=== PATIENT | male | born 1975 | race Caucasian/White ===

== ENCOUNTER 2024-03-22 20:38 | Emergency (ER) | payer SELFPAY ==
[2024-03-22 20:40] VITALS: BP 152/96; PULSE 105; RESP 20; TEMP 36.8; BMI 25.9
--- NOTE | 2024-03-22 20:54 | EDS_ITS ---
HPI HPI - Fall History of Present Illness Chief Complaint: Fall Informant: patient and EMS Narrative Narrative: Patient states he had a fall around 8 or 9 hours ago, presenting now by EMS for pain and injury from it to the right side of his back. He states he has multiple myeloma is on treatment for it and recently was in a coma and released from a [facility], he has been feeling generally weak but not acutely so, getting around with his walker. Has been home for 3 days now, and feeling less weak than he was when he was discharged from the hospital, which was in [facility]. He lost his balance in his kitchen today while using his walker, which went up on one wheel and he fell against the counter against his right back, injuring ribs on the right side hurts more to move, he is not out of breath he denies any other injury or systemic symptoms or other recent illness. He had no prodromal symptoms with regards of the fall, and basically describes this as being mechanical like he turned too sharply. [facility] Medical History Multiple myeloma Allergy/AdvReac Type Severity Reaction Status Date / Time No Known Allergies Allergy Verified 03/22/24 20:40 Social History Smoking Status: Former smoker ROS ROS ED Constitutional Constitutional ED: Denies chills or fever(s) Eyes Eyes: Denies change in vision or diplopia ENT ENT ED: Denies rhinorrhea or sore throat Cardiovascular Cardiovascular: Denies chest pain or palpitations Respiratory/Chest Respiratory/Chest: Denies cough or dyspnea Gastrointestinal Gastrointestinal: Denies abdominal pain, diarrhea, nausea or vomiting Genitourinary Genitourinary ED: Denies dysuria or hematuria Musculoskeletal Musculoskeletal: Reports back pain; Denies neck pain Integumentary Denies abscess or rash Neurologic Neurologic: Denies headache(s), paresthesias or weakness Psychiatric Psychiatric: Denies anxiety or suicidal thoughts EXAM Physical Exam Const Vital Signs: 03/22/24 20:40 03/22/24 20:43 Temperature 98.3 F Temperature Source Oral Pulse Rate 105 H Respiratory Rate 20 H Respiratory Effort Normal Non-Labored Respiratory Depth Normal Respiratory Pattern Normal Blood Pressure 152/96 H Blood Pressure Mean 114 Oxygen Delivery Method Room Air Room Air Positive well nourished and well developed General Appearance ED: well developed and NAD HEENT Reports moist mucous membranes normocephalic and atraumatic Eyes PERRL and EOMs intact bilaterally Neck full ROM and supple Neck Narrative: Suspected central line site scab without signs of hematoma or infection/tenderness left lateral neck over the sternocleidomastoid anterolaterally/distally Chest Wall inspection of chest normal and palpation of chest normal Chest Narrative: With lateral compression of the rib cage patient has no pain Resp normal respiratory effort and clear to auscultation bilaterally Cardio regular rate, regular rhythm and no murmurs GI non-tender and non-distended GI Narrative: Epigastric PEG benign site Auscultation: normoactive bowel sounds Palpation: soft Back/Spine no CVA tenderness Back/Spine Narrative: No objective signs of trauma. No midline spine tenderness throughout. Right paraspinal tenderness from the inferior aspect of the right scapula all the way down throughout the ribs, no other bony tenderness including the pelvic brim. No palpable crepitance or step-off. No scapular bony tenderness. General Back: other Limited range of motion due to pain but able to roll over on his own Extremity normal to inspection Extremity Narrative: Full range of motion throughout all 4 extremities without any joint or extremity pain or limitation General Extremety ED: Negative for edema, pulses abnormal or tenderness General Extremity: Negative for edema or pulses abnormal Neuro oriented x3, CN's II-XII intact bilaterally and no sensory deficits noted Sensorium / Orientation: awake and alert Motor Exam: strength 5/5 throughout Psych mental status grossly normal and thought process normal Skin no rashes or lesions noted and no wounds MDM MDM MDM Narrative Medical decision making narrative: I obtained 5 view x-ray series of the right ribs including a PA chest. There is no rib fracture on my interpretation, no pneumothorax, however he has bilateral patchy infiltrates. I sat with him and obtain more history. He has had no cough today, no dyspnea. He states he does not remember anything about his recent hospitalization, just that he got some chemotherapy in his arm and the next thing he remembers it is several weeks later and he is waking up in the hospital and people are telling him that he almost . He agrees that he was discharged on quite a few medications, he has no idea what they are or if he is on an antibiotic or not. Eventually while here in the ER someone was able to produce some discharge papers with a list of medications and follow-up appointments. He is on no antibiotics. He apparently was in the ICU with s eptic shock, NSTEMI, acute hypoxic respiratory failure, IgG myeloma hyponatremia, aspiration pneumonitis, and a nontraumatic retroperitoneal hematoma. He states overall right now he is feeling pretty good. When asked why he is here in this area which is a long way from [facility], he states he has family that lives here but his and kids are in [place] and I did not want to in [place], so I came here and was hoping to just see doctors here instead of there. He has follow-up recommended for primary care, hospitalist, gen surgery, CHF clinic, and pulmonary in the [facility]. I advised him that if he wants good care, he needs to follow- up with those doctors, without trying to transfer his care here since he will be a new patient everyone and I will take him a long time to get appointments. He agrees that is reasonable. With regards to his chest x-ray showing patchy infiltrates bilaterally, it is unclear if this is infectious, if they are acute, if they are chronic, if they are resolving, etc. I obtained some labs at this time in order to help put this in the context. Clinically he looks great and his vital signs are excellent, with a mild resting tachycardia. I reviewed the labs. The only 1 that is immediately concerning is his hemoglobin of 6.8. I have no old measurements recently for reference. He has some mild renal insufficiency, he was diagnosed with MAIRO on his discharge papers, and with regards to his chest x-ray I suspect since he has no acute symptoms that these findings are either chronic, resolving, or both. I do not think he needs acute antibiotic therapy. After discussion with the patient, he is amenable to getting a unit of blood transfusion and being discharged home. Again as above encouraged to make his multiple follow-up appointments with his established healthcare system. History & Record Review Additional record(s) reviewed:: Other ([facility] outside [facility] records, pt is not listed.) Lab Data Attestation: I reviewed the patient's lab results. Labs: Laboratory Results - last 24 hr 03/22/24 03/23/24 23:51 00:03 WBC 7.7 RBC 2.32 L Hgb 6.8 L Hct 22.1 L MCV 95.3 H MCH 29.3 MCHC 30.8 L RDW Std Deviation 60.6 H RDW Coeff of Michael 17.8 H Plt Count 502 H MPV 9.8 Immature Gran % (Auto) 0.300 Neut % (Auto) 76.7 H Lymph % (Auto) 17.3 L Dickson % (Auto) 5.1 Eos % (Auto) 0.3 Baso % (Auto) 0.3 Absolute Neuts (auto) 5.9 Absolute Lymphs (auto) 1.32 Nucleated RBC % 0 Sodium 137 Potassium 3.9 Chloride 111 H Carbon Dioxide 24.0 Anion Gap 2 L BUN 35 H Creatinine 1.47 H Estim Creat Clear Calc 72.65 Est GFR (MDRD) Af Amer 65 Est GFR (MDRD) Non-Af 54 L BUN/Creatinine Ratio 23.8 H Glucose 94 Lactic Acid 0.6 Calcium 7.6 L Radiography Diagnostic Testing: Clinical Impression(s) from Imaging Studies Ribs w/Chest X-Ray 03/22/24 21:05 IMPRESSION: No evidence of acute rib fracture. Bilateral patchy infiltrates. Electronically Signed: Benji Rodriguez DO at 21:30 EDT Reading Location ID and State: [address] [place] [address] Tel [phone], Service support , Discharge Plan Triage Chief Complaint: Fall ED Provider: Cordell Preciado Dx/Rx/DC Orders Clinical Impression: Back contusion, Anemia, Bilateral pulmonary infiltrates on chest x-ray Instructions: ED Anemia, Type Not Specified (Adult), ED Back Contusion Primary Care Provider: Care Physician,No Primary Referrals: Doctor,Your [Non-Staff] - (as recommended on your [place] discharge papers) Print Language: [place] Disposition Disposition: Home, Self Care
[2024-03-22] MEDS: oxyCODONE 5 MG Tablet PO (20:57)
--- NOTE | 2024-03-22 21:05 | RAD_ITS ---
INDICATION: injury/fall, posterior pain EXAMINATION/TECHNIQUE: X-RAY - XR Ribs Unilateral W/ PA Chest Min 3 Views COMPARISON: FINDINGS: SOFT TISSUES: No soft tissue swelling or gas. BONES: Old right and fifth rib fractures. No sclerotic or destructive changes observed. Degenerative vertebral changes. VISUALIZED LUNGS: Bilateral patchy infiltrates. No pneumothorax. RAD/Ribs Uni Min 3V w/PA Chest IMPRESSION: No evidence of acute rib fracture. Bilateral patchy infiltrates. Electronically Signed: Benji Rodriguez DO at 21:30 EDT ,
[2024-03-23] VITALS: BP 148/85; O2SAT 91
[2024-03-23] MEDS: Morphine 4 MG/ML Syringe IV (00:13)
[2024-03-23 00:25] LABS: Absolute Lymphocyte Count 1.32 X10^3/uL (0.83-4.51); Absolute Neutrophil Count 5.9 X10^3/uL (2.0-7.7); Basophil# 0.02 X10^3/uL; Basophil% 0.3 % (0-1); Eosinophil# 0.02 X10^3/uL; Eosinophils% 0.3 % (0-5); Hematocrit 22.1 % (40-54); Hemoglobin 6.8 g/dL (13.0-16.5); Lymphocyte # 1.32 X10^3/ul (0.83-4.51); Lymphocyte % 17.3 % (19-41); Mean Corp Hgb Conc 30.8 g/dL (32-36); Mean Corpuscular Hgb 29.3 pg (27.0-32.0); Mean Corpuscular Volume 95.3 fL (80-94); Mean Platelet Vol. 9.8 fl (6.2-12.0); Monocyte# 0.39 X10^3/uL; Monocyte% 5.1 % (0-10); NRBC Flagged by Analyzer 0 % (0-5); Neutrophil # 5.88 X10^3/uL (2.7-7.7); Neutrophil % 76.7 % (47-70); Platelet Count 502 K/mm3 (150-450); RBC Distribution Width CV 17.8 % (11.6-14.6); RBC Distribution Width SD 60.6 fl (35.1-43.9); Red Blood Count 2.32 M/mm3 (4.6-6.2); White Blood Count 7.7 K/mm3 (4.4-11.0)
[2024-03-23 00:28] LABS: Anion Gap 2 (5-15); BUN 35 mg/dL (7-18); BUN/Creat Ratio 23.8 RATIO (10-20); Calcium,Total 7.6 mg/dL (8.5-10.1); Chloride 111 mmol/L (98-107); Creatinine, Serum 1.47 mg/dL (0.70-1.30); EST Glomerular Filtration Rate 54 mL/min (>60); Est Glom Filt Rate - Afr Amer 65 mL/min (>60); Estimated Creatinine Clearance 72.65 ml/min; Glucose 94 mg/dL (74-106); Lactic Acid 0.6 mmol/L (0.4-1.9); Potassium 3.9 mmol/L (3.5-5.1); Sodium Level 137 mmol/L (136-145)
[2024-03-23 00:50] VITALS: BP 167/101; PULSE 95; RESP 18; O2SAT 92
[2024-03-23 00:55] VITALS: O2SAT 87
[2024-03-23 01:00] VITALS: O2SAT 94
[2024-03-23 02:20] VITALS: BP 175/118; PULSE 101; RESP 18; TEMP 36.9; O2SAT 95
--- NOTE | 2024-03-23 02:38 | ED.RN ---
This RN received an update from the blood bank informing me that the type and screen would take longer d/t the patient's previous blood transfusions. This RN updated the patient on the reason for the wait. The pt. stated well I've been here 6 hours and it will be too long before I get out of here. This RN educated the patient on the necessity of the blood and our recommendation for the patient's care. The pt. stated well that's too damn long to wait, I'd rather go home. Pt. decided to be refuse the blood and leave. notified.
== END 2024-03-23 02:44 | disposition home or self-care (01) ==
PROVIDERS: Emergency Provider Emergency Medicine; Visit Provider Emergency Medicine
DX: S20.221A Contusion of right back wall of thorax, initial encounter (principal); C90.00 Multiple myeloma not having achieved remission; D64.9 Anemia, unspecified; R91.8 Other nonspecific abnormal finding of lung field; W01.198A Fall on same level from slipping, tripping and stumbling with subsequent striking against other object, initial encounter; Y92.000 Kitchen of unspecified non-institutional (private) residence as the place of occurrence of the external cause; Z87.891 Personal history of nicotine dependence
CPT/HCPCS: 71101; 80048; 83605; 85025; 86850; 86870; 86900; 86901; 96374; 99282; J7040; A4216

== ENCOUNTER 2024-03-26 09:26 | Inpatient (IN) | payer SELFPAY ==
[2024-03-26] VITALS (31 sets, daily range): BP systolic 115–178; BP diastolic 72–126; PULSE 102–145; RESP 12–40; TEMP 36.2–37.7; O2SAT 88–99; BMI 23.8; BMI 23.6
--- NOTE | 2024-03-26 09:46 | EDS_ITS ---
HPI History of Present Illness Chief Complaint: Shortness of Breath Informant: patient Narrative Narrative: Patient presents for shortness of breath over the last 1 or 2 days. He was seen here 3 to 4 days ago, we ordered a blood transfusion on him, after waiting for a while he refused and decided to leave. He was not really short of breath than he had no cough. He has multiple myeloma recently had an extended stay in the ICU at a [facility], see the history from my last note when I saw him a couple days ago. Now, he states he is really dyspnea especially with any exertion, and he has orthopnea. No chest discomfort even with exertion. Legs are swollen as they were before, they are sore because they are so swollen that is not really any different. Denies any other new symptoms. [facility] Medical History Multiple myeloma Home Medications ?Medication ?Instructions ?Recorded ?Last Taken ?Type allopurinol 300 mg tablet 300 mg PO DAILY Gout 03/26/24 Unknown History amlodipine 5 mg tablet 10 mg PO DAILY BP 03/26/24 Unknown History fentanyl 25 mcg/hr transdermal 1 patch transdermal Q72H pain 03/26/24 Unknown History patch gabapentin 300 mg capsule 300 mg PO TID Neuropathy 03/26/24 Unknown History metoprolol tartrate 25 mg tablet 25 mg PO BID HTN 03/26/24 Unknown History pantoprazole 40 mg tablet,delayed 40 mg PO DAILY GERD 03/26/24 Unknown History release ramelteon 8 mg tablet 8 mg PO QHS sleep 03/26/24 Unknown History rivaroxaban 10 mg tablet 10 mg PO DAILY Blood thinner 03/26/24 Unknown History scopolamine base 1 mg over 3 days 1 patch transdermal Q72H pain 03/26/24 Unknown History transdermal patch sertraline 100 mg tablet (Zoloft) 100 mg PO DAILY Depression 03/26/24 Unknown History Allergy/AdvReac Type Severity Reaction Status Date / Time No Known Allergies Allergy Verified 03/26/24 09:27 Social History Smoking Status: Former smoker ROS ROS ED Constitutional Constitutional ED: Denies chills or fever(s) Eyes Eyes: Denies change in vision or diplopia ENT ENT ED: Denies rhinorrhea or sore throat Cardiovascular Cardiovascular: Reports leg edema and orthopnea; Denies chest pain or palpitations Respiratory/Chest Respiratory/Chest: Reports dyspnea, dyspnea on exertion and orthopnea; Denies cough Gastrointestinal Gastrointestinal: Denies abdominal pain, diarrhea, nausea or vomiting Genitourinary Genitourinary ED: Denies dysuria or hematuria Musculoskeletal Musculoskeletal: Reports back pain and other Details: back pain from contusion sev days ago much better ; Denies neck pain Integumentary Denies abscess or rash Neurologic Neurologic: Denies headache(s), paresthesias or weakness Psychiatric Psychiatric: Denies anxiety or suicidal thoughts EXAM Physical Exam Const Vital Signs: 03/26/24 09:27 03/26/24 09:27 03/26/24 09:59 Temperature 98 F Temperature Source Temporal Pulse Rate 128 H 126 H 120 H Respiratory Rate 18 20 H 30 H Respiratory Effort Respiratory Pattern Blood Pressure 171/115 H 177/124 H Blood Pressure Mean 133 141 Pulse Ox 95 94 Oxygen Delivery Method Room Air Room Air Oxygen Flow Rate (L/min) 03/26/24 10:19 03/26/24 10:22 03/26/24 10:30 Temperature 98.3 F Temperature Source Oral Pulse Rate 119 H Respiratory Rate 24 H Respiratory Effort Short of Breath Respiratory Pattern Tachypnea Blood Pressure 161/108 H Blood Pressure Mean 125 Pulse Ox 88 Oxygen Delivery Method Room Air Room Air Oxygen Flow Rate (L/min) 03/26/24 11:00 03/26/24 12:00 03/26/24 12:12 Temperature 98.3 F 98.1 F Temperature Source Oral Oral Pulse Rate 119 H 125 H Respiratory Rate 24 H 26 H Respiratory Effort Respiratory Pattern Blood Pressure 169/114 H 178/120 H Blood Pressure Mean 132 139 Pulse Ox 94 96 Oxygen Delivery Method Nasal Cannula Nasal Cannula Nasal Cannula Oxygen Flow Rate (L/min) 2 2 2 Positive well nourished and well developed General Appearance ED: well developed and NAD HEENT Reports moist mucous membranes normocephalic and atraumatic Eyes PERRL and EOMs intact bilaterally Neck full ROM and supple Resp Resp Narrative: Tachypneic, bibasilar Rales/rhonchi Cardio regular rate, regular rhythm and no murmurs GI non-tender and non-distended Auscultation: normoactive bowel sounds Palpation: soft Back/Spine no CVA tenderness General Back: other FROM Extremity normal to inspection General Extremety ED: Yes edema; Negative for pulses abnormal or tenderness General Extremity: edema bilateral lower extremity Details: mild; Negative for p ulses abnormal Neuro oriented x3, CN's II-XII intact bilaterally and no sensory deficits noted Sensorium / Orientation: awake and alert Motor Exam: strength 5/5 throughout Skin no rashes or lesions noted and no wounds MDM MDM MDM Narrative Medical decision making narrative: Labs obtained, and since then suspicious for acute congestive heart failure, give the patient a duo nebulizer and Lasix. He still is hypoxic, 88% on room air, needing oxygen, still tachycardic afterwards and hypertensive. He needs to be admitted to the hospital at this point. He refused the blood transfusion the other day, his hemoglobin is now 7.6 so I held off on emergently transfusing him. His EKG shows sinus tachycardia no acute injury pattern, his BNP is very high consistent with the above, his troponin is within normal limits. Has hypoalbuminemia, which likely is contributing to his peripheral edema in conjunction with acute congestive heart failure. Lab Data Attestation: I reviewed the patient's lab results. Labs: Laboratory Results - last 24 hr 03/26/24 09:50 WBC 10.6 RBC 2.55 L Hgb 7.6 L Hct 24.6 L MCV 96.5 H MCH 29.8 MCHC 30.9 L RDW Std Deviation 61.4 H RDW Coeff of Michael 17.9 H Plt Count 469 H MPV 9.7 Immature Gran % (Auto) 0.600 Neut % (Auto) 83.3 H Lymph % (Auto) 11.5 L [place] % (Auto) 4.3 Eos % (Auto) 0.2 Baso % (Auto) 0.1 Absolute Neuts (auto) 8.9 H Absolute Lymphs (auto) 1.22 Nucleated RBC % 0 Sodium 132 L Potassium 3.8 Chloride 107 Carbon Dioxide 21.0 Anion Gap 4 L BUN 22 H Creatinine 1.16 Estim Creat Clear Calc 92.07 Est GFR (MDRD) Af Amer 86 Est GFR (MDRD) Non-Af 71 BUN/Creatinine Ratio 19.0 Glucose 105 Calcium 8.3 L Iron 51 L TIBC 247 L Iron Saturation 20.6 Ferritin 774 H Total Bilirubin 0.40 AST 26 ALT 18 Alkaline Phosphatase 100 Troponin I High Sens 22 B-Natriuretic Peptide 2328.0 H Total Protein 12.8 H Albumin 2.0 L Globulin 10.8 H Albumin/Globulin Ratio 0.2 L Folate 14.10 TSH 11.400 H Radiography Diagnostic Testing: Clinical Impression(s) from Imaging Studies Chest X-Ray 03/26/24 10:40 IMPRESSION: Cardiomegaly, hyperinflation and increase in bilateral diffuse interstitial prominence with small effusions. Findings compatible with worsening interstitial edema/congestive failure. Follow-up chest imaging to resolution recommended. Electronically Signed: Tadeo Medrano MD at 11:00 EDT , Rhythm Strip Rhythm Strip: Sinus Tach Rate: 120 Ectopy: None EKG Initial EKG: Attestation: I personally reviewed and interpreted this EKG as follows: Interpretation: No Acute Injury Pattern and Sinus Tachycardia Management Discussion w/another healthcare provider: Hospitalist Discharge Plan Dx/Rx/DC Orders Clinical Impression: Acute CHF, Hypoxemia, Edema due to hypoalbuminemia, Anemia Disposition Disposition: [facility]
[2024-03-26] MEDS: Ipratropium/Albuterol Sulfate 3 ML AMPUL.NEB INHALATION (09:57)
[2024-03-26] MEDS: Furosemide 20 MG/2 ML VIAL IV (10:03)
[2024-03-26 10:05] LABS: Absolute Lymphocyte Count 1.22 X10^3/uL (0.83-4.51); Absolute Neutrophil Count 8.9 X10^3/uL (2.0-7.7); Basophil# 0.01 X10^3/uL; Basophil% 0.1 % (0-1); Eosinophil# 0.02 X10^3/uL; Eosinophils% 0.2 % (0-5); Hematocrit 24.6 % (40-54); Hemoglobin 7.6 g/dL (13.0-16.5); Lymphocyte # 1.22 X10^3/ul (0.83-4.51); Lymphocyte % 11.5 % (19-41); Mean Corp Hgb Conc 30.9 g/dL (32-36); Mean Corpuscular Hgb 29.8 pg (27.0-32.0); Mean Corpuscular Volume 96.5 fL (80-94); Mean Platelet Vol. 9.7 fl (6.2-12.0); Monocyte# 0.46 X10^3/uL; Monocyte% 4.3 % (0-10); NRBC Flagged by Analyzer 0 % (0-5); Neutrophil # 8.86 X10^3/uL (2.7-7.7); Neutrophil % 83.3 % (47-70); Platelet Count 469 K/mm3 (150-450); RBC Distribution Width CV 17.9 % (11.6-14.6); RBC Distribution Width SD 61.4 fl (35.1-43.9); Red Blood Count 2.55 M/mm3 (4.6-6.2); White Blood Count 10.6 K/mm3 (4.4-11.0)
[2024-03-26 10:20] LABS: Troponin-I HS 22 pg/mL (3.0-78.0)
--- NOTE | 2024-03-26 10:40 | RAD_ITS ---
STUDY: X-RAY CHEST REASON FOR EXAM: Male, 48 years old. Shortness of breath. TECHNIQUE: Frontal and lateral views of the chest on 3 images. COMPARISON: March 22, 2024 FINDINGS: Hyperinflation with increased diffuse interstitial prominence compared to the prior study. Bilateral small effusions. Marked cardiomegaly. Normal mediastinum and brian. Prominent central pulmonary arteries. Aortic tortuosity. Thoracic osteopenia with spondylosis and multiple vertebral plasty changes. Normal visualized ribs, clavicles, and shoulders. No abnormality of the visualized soft tissue structures of the upper abdomen. RAD/Chest PA and Lateral IMPRESSION: Cardiomegaly, hyperinflation and increase in bilateral diffuse interstitial prominence with small effusions. Findings compatible with worsening interstitial edema/congestive failure. Follow-up chest imaging to resolution recommended. Electronically Signed: Tadeo Medrano MD at 11:00 EDT ,
[2024-03-26 12:31] LABS: ALB/GLOB Ratio 0.2 RATIO (0.9-2.4); AST(SGOT) 26 U/L (15-37); Alanine Aminotransfer ALT/SGPT 18 U/L (16-61); Alkaline Phosphatase 100 U/L (45-117); Anion Gap 4 (5-15); BUN 22 mg/dL (7-18); Calcium,Total 8.3 mg/dL (8.5-10.1); Chloride 107 mmol/L (98-107); Creatinine, Serum 1.16 mg/dL (0.70-1.30); EST Glomerular Filtration Rate 71 mL/min (>60); Est Glom Filt Rate - Afr Amer 86 mL/min (>60); Estimated Creatinine Clearance 92.07 ml/min; Globulin 10.8 g/dL (2.2-4.2); Glucose 105 mg/dL (74-106); Potassium 3.8 mmol/L (3.5-5.1); Protein, Total 12.8 g/dL (6.4-8.2); Sodium Level 132 mmol/L (136-145)
--- NOTE | 2024-03-26 12:45 | HP.PCM.HOS_ITS ---
HPI - General General Date of Admission: 03/26/24 Date of Service: 03/26/24 Chief Complaint: Worsening shortness of breath HPI Narrative MAGUI BINGHAM, is a 48 M who presented to [facility] ED on 03/26/2024 with worsening shortness of breath. Saw patient at bedside in the ED. Patient had mild increased work of breathing noted on 2 L nasal cannula with oxygen saturations in the low to mid 90s. Patient has complicated recent past medical history; please see Dr. Preciado's note from ED visit on 03/22 for further details. In short, patient was living in [place], [place] until about 1 week ago. He was diagnosed with multiple myeloma back in September of this year. He apparently had started chemotherapy treatments but then had a very complicated prolonged hospitalization recently. He was in the ICU with septic shock, NSTEMI, acute hypoxic respiratory failure, hyponatremia, aspiration pneumonitis and nontraumatic retroperitoneal hematoma. He was intubated for 2 weeks but was able to be extubated and did not require tracheostomy placement. He did have a PEG tube placed for feeding and PEG tube remains in place now, though he is eating by mouth fine and PEG tube is not being used. He had follow-up set up with several physicians in [place] but his mother lives here in [place] and he decided to move up here at least for now and establish care here. He came to the ED on 03/22 with shortness of breath and was found to have mild patchy bilateral infiltrates and anemia with hemoglobin 6.8. He was going to receive a blood transfusion but apparently became tired of waiting for the blood in the left AMA from the ED. In the ED today his presentation was consistent with a heart failure exacerbation. Chest x-ray showed cardiomegaly, hyperinflation and increase in bilateral diffuse interstitial fragments with small pleural effusions. BNP 2328. Blood pressure was high. Was given a dose of IV Lasix and a DuoNeb treatment. Remained hypoxic, hypertensive and with sinus tachycardia after these treatments. Hospitalist was then contacted for admission. About 30 minutes to an hour after I initially saw him, I was contacted with nursing staff who stated the patient was not doing well. Returned to see patient at bedside. Patient had been placed on BiPAP and had significantly increased work of breathing compared to previous. Had sinus tachycardia to the 120s 130s. Suspected that patient had some degree of hypertensive urgency possibly causing flash pulmonary edema. Give another dose of IV Lasix 40 and started in the Cardene drip, and patient was admitted to the ICU for further management. [facility] Medical History (Updated 03/27/24 @ 08:[address] Will Enrique DO) Substance abuse Anxiety Depression Former smoker Seizures Multiple myeloma Home Medications ?Medication ?Instructions ?Recorded ?Last Taken ?Type allopurinol 300 mg tablet 300 mg PO DAILY Gout 03/26/24 Unknown History amlodipine 5 mg tablet 10 mg PO DAILY BP 03/26/24 Unknown History fentanyl 25 mcg/hr transdermal 1 patch transdermal Q72H pain 03/26/24 Unknown History patch gabapentin 300 mg capsule 300 mg PO TID Neuropathy 03/26/24 Unknown History metoprolol tartrate 25 mg tablet 25 mg PO BID HTN 03/26/24 Unknown History pantoprazole 40 mg tablet,delayed 40 mg PO DAILY GERD 03/26/24 Unknown History release ramelteon 8 mg tablet 8 mg PO QHS sleep 03/26/24 Unknown History rivaroxaban 10 mg tablet 10 mg PO DAILY Blood thinner 03/26/24 Unknown History scopolamine base 1 mg over 3 days 1 patch transdermal Q72H pain 03/26/24 Unknown History transdermal patch sertraline 100 mg tablet (Zoloft) 100 mg PO DAILY Depression 03/26/24 Unknown History Allergy/AdvReac Type Severity Reaction Status Date / Time No Known Allergies Allergy Verified 03/26/24 09:27 Social History Smoking Status: Former smoker ROS Constitutional Constitutional: Reports fatigue and weakness; Denies chills or fever(s) Eyes Eyes: Denies change in vision Cardiovascular Cardiovascular: Reports dyspnea on exertion and edema; Denies chest pain Respiratory/Chest Respiratory/Chest: Reports shortness of breath at rest; Denies cough or wheezing Gastrointestinal Gastrointestinal: Denies abdominal pain Genitourinary Genitourinary: Denies dysuria Musculoskeletal Musculoskeletal: Denies arthralgias or myalgias Neurologic Neurologic: Denies dizziness, focal weakness or headache(s) Vital Signs Vital Signs Vital Signs: 03/26/24 09:27 03/26/24 09:27 03/26/24 09:59 Temperature 98 F Temperature Source Temporal Pulse Rate 128 H 126 H 120 H Respiratory Rate 18 20 H 30 H Respiratory Effort Respiratory Pattern Blood Pressure 171/115 H 177/124 H Blood Pressure Mean 133 141 Pulse Ox 95 94 Oxygen Delivery Method Room Air Room Air Oxygen Flow Rate (L/min) 03/26/24 10:19 03/26/24 10:22 03/26/24 10:30 Temperature 98.3 F Temperature Source Oral Pulse Rate 119 H Respiratory Rate 24 H Respiratory Effort Short of Breath Respiratory Pattern Tachypnea Blood Pressure 161/108 H Blood Pressure Mean 125 Pulse Ox 88 Oxygen Delivery Method Room Air Room Air Oxygen Flow Rate (L/min) 03/26/24 11:00 03/26/24 12:00 03/26/24 12:12 Temperature 98.3 F 98.1 F Temperature Source Oral Oral Pulse Rate 119 H 125 H Respiratory Rate 24 H 26 H Respiratory Effort Respiratory Pattern Blood Pressure 169/114 H 178/120 H Blood Pressure Mean 132 139 Pulse Ox 94 96 Oxygen Delivery Method Nasal Cannula Nasal Cannula Nasal Cannula Oxygen Flow Rate (L/min) 2 2 2 Weight Weight: 86.4 kg Body Mass Index (BMI) 23.8 Physical Exam Const alert, oriented x3, no apparent distress and average body habitus Constitutional Narrative: Middle-age male, mildly fatigued appearing, mild increased work of breathing noted on 2 L nasal cannula, otherwise sitting up fairly comfortably in bed, conversing normally, in no acute distress. General Appearance: cooperative HEENT normocephalic, head/scalp atraumatic, hearing grossly normal bilaterally, nasal mucous membranes and turbinates normal and moist oral mucous membranes Eyes PERRL, EOMs intact bilaterally and conjunctivae normal Neck full ROM Chest inspection of chest normal Resp Resp Narrative: Mild increased work of breathing noted on 2 there is nasal cannula with oxygen saturations in the low 90s. Moderately decreased breath sounds bilaterally throughout with crackles noted. No wheezing noted. Cardio no murmurs and peripheral pulses 2+ throughout Cardio Narrative: Tachycardic, regular rhythm. GI normal to inspection, nondistended, normoactive bowel sounds, soft to palpation, non-tender and non-distended Back/Spine normal ROM Extremity Extremity Narrative: +2-3 lower extremity pitting edema. Skin no rashes or lesions noted Neuro moves all extremities and no focal motor deficits Speech: speech normal Psych mental status grossly normal Results Lab / Micro Data 03/27/24 04:45 03/27/24 04:45 Labs: Laboratory Results - last 24 hr 03/26/24 09:50: WBC 10.6, RBC 2.55 L, Hgb 7.6 L, Hct 24.6 L, MCV 96.5 H, MCH 29.8, MCHC 30.9 L, RDW Std Deviation 61.4 H, RDW Coeff of Michael 17.9 H, Plt Count 469 H, MPV 9.7, Immature Gran % (Auto) 0.600, Neut % (Auto) 83.3 H, Lymph % (Auto) 11.5 L, Ballard % (Auto) 4.3, Eos % (Auto) 0.2, Baso % (Auto) 0.1, Absolute Neuts (auto) 8.9 H, Absolute Lymphs (auto) 1.22, Nucleated RBC % 0, Sodium 132 L , Potassium 3.8, Chloride 107, Carbon Dioxide 21.0, Anion Gap 4 L, BUN 22 H, Creatinine 1.16, Estim Creat Clear Calc 92.07, Est GFR (MDRD) Af Amer 86, Est GFR (MDRD) Non-Af 71, BUN/Creatinine Ratio 19.0, Glucose 105, Calcium 8.3 L, Total Bilirubin 0.40, AST 26, ALT 18, Alkaline Phosphatase 100, Troponin I High Sens 22, B-Natriuretic Peptide 2328.0 H, Total Protein 12.8 H, Albumin 2.0 L, G lobulin 10.8 H, Albumin/Globulin Ratio 0.2 L Rhythm Strip Rhythm Strip: Sinus Tach Rate: 120 Ectopy: None Imaging Radiology Impression Chest X-Ray 03/26/24 10:40 IMPRESSION: Cardiomegaly, hyperinflation and increase in bilateral diffuse interstitial prominence with small effusions. Findings compatible with worsening interstitial edema/congestive failure. Follow-up chest imaging to resolution recommended. Electronically Signed: Tadeo Medrano MD at 11:00 EDT Reading Location ID and State: [facility] / [place] , Service support , Assessment & Plan Assessment/Plan (1) Acute CHF: (2) Edema due to hypoalbuminemia: (3) Acute hypoxic respiratory failure: (4) Anemia: (5) HTN (hypertension): (6) Multiple myeloma: PLAN: Plan Patient is a 48-year-old male who presented [facility] ED on 03/26/2024 with worsening shortness of breath. 1. CHF exacerbation with acute hypoxic respiratory failure ? Admit under inpatient status to ICU. Presented with worsening shortness of breath. Chest x-ray with bilateral infiltrates and small pleural effusions. BNP 2300. Suspect new heart failure may be related to his multiple myeloma. Will treat with IV Lasix 40 mg every 8 hours for now. Urinary catheter placed for strict monitoring of I's and O's. Monitor daily BMP. Requiring BiPAP on admission, wean supplemental oxygen as able. Treating hypertension as noted below. Echo ordered. 2. Hypertensive urgency ? Hypertensive to 170s over 120s in the ED. Has history of hypertension, on home amlodipine and Lopressor but patient reports only intermittent compliance. Concern for hypertensive urgency with some degree of flash pulmonary edema in the ED. Continue Cardizem drip started in the ED for now. 3. Normocytic anemia ? Hemoglobin 7.6 on admit. Notably was 6.8 at recent ED visit on 03/22. Notably had prolonged hospitalization complicated by retroperitoneal hematoma recently and patient appears to be close to his new baseline hemoglobin. Low hemoglobin presumed in part due to multiple myeloma as well. Monitor CBC daily and transfuse for hemoglobin less than 7. Notably would need irradiated blood products with a transfusion. Iron studies, B12 and folate ordered. 4. Mild hyponatremia ? Sodium 132 on admit. Suspect due to hypervolemia. Treating CHF exacerbation as above. Monitor daily BMP. 5. Multiple myeloma with recent prolonged hospitalization ? Reportedly diagnosed in September 2023. Previously lived in [place] and had apparently began chemotherapy there prior to a prolonged hospitalization within the last month or so. That hospitalization was complicated by septic shock, NSTEMI, respiratory failure, hyponatremia, aspiration pneumonitis and nontraumatic retroperitoneal hematoma. Was intubated for about 2 weeks, able to be extubated without need for tracheostomy. Does have PEG tube in place, not currently in use. Mother lives in [place] and patient apparently moved up here last week and reports wanting to establish care here. Labs on admit with total protein 12.8, globulins 10.8, albumin 2.0. Treating acute CHF exacerbation as noted above. No inpatient needs for multiple myeloma but will need to determine outpatient treatment plan for him on discharge. 6. Hypothyroidism ? TSH 11.4, free T4 0.70 on admit. Unclear if patient has previous diagnosis of hypothyroidism but has no Synthroid noted on home med list. Will start p.o. Synthroid 50 mcg daily. 7. Acute debility ? PT/OT/case management consulted. Chronic medical conditions: ? GERD: Continue home PPI. ? Depression/insomnia: Continue home sertraline. Holding ramelteon, will start melatonin at night as needed. ? Chronic pain with neuropathy: Continue home gabapentin and fentanyl patch. ? History of gout: Continue home allopurinol. DVT prophylaxis: Lovenox CODE STATUS: Full code, verified Expected disposition: TBD Total clinical time spent by myself addressing the patient's medical issues, reviewing all the data, and collaborating with patient's care team: 75 minutes. Charges/Coding Visit Charges Inpatient E&M: 84534 Init Hosp L3
--- NOTE | 2024-03-26 12:53 | ECHOCS_ITS ---
Reason For Study: CHF Procedure This was a 2D Doppler, Color Flow transthoracic echocardiogram. Contrast injection was performed. Exam performed portable in ICU/CCU. Left Ventricle Normal LV size. Severe generalized LV hypokinesis. Estimated LVEF 30 to 35%. Diastolic function indeterminate. Right Ventricle Normal RV size. Mild to moderate global right ventricular systolic dysfunction. Atria The left atrium is mildly enlarged. Normal right atrium. Mitral Valve The mitral valve is structurally normal. No prolapse or stenosis seen. Tricuspid Valve Trivial tricuspid valve insufficiency. Right ventricular systolic pressure estimated to be 45 mmHg. Aortic Valve Trisinus/trileaflet aortic valve. Pulmonic Valve The pulmonic valve is not well visualized. Great Vessels The aortic root is not well visualized. Pericardium/Pleural No pericardial effusion. Medication Diluted definity 1.5ml given slow IV push to enhance endocardial definition. MMode/2D Measurements & Calculations LVIDd: 5.4 cm IVSd: 1.1 cm LVOT diam: 2.2 cm LVIDs: 4.6 cm LVPWd: 0.96 cm RVDd: 4.5 cm FS: 15.0 % LVOT area: 3.7 cm2 asc Aorta Diam: 3.1 cm LAV(MOD-bp): 46.2 ml LVAd ap4: 43.0 cm2 LAV(MOD-bp) Indexed: 21.5 ml/m2 LVLd ap4: 9.4 cm LAV(MOD-sp2): 49.7 ml EDV(MOD-sp4): 171.3 ml LAV(MOD-sp4): 40.5 ml EDV(sp4-el): 167.4 ml LVAs ap4: 33.4 cm2 LVLs ap4: 8.7 cm ESV(MOD-sp4): 109.8 ml ESV(sp4-el): 109.2 ml EF(MOD-sp4): 35.9 % EF(sp4-el): 34.8 % SV(MOD-sp4): 61.5 ml SV(sp4-el): 58.2 ml LA A4 area: 16.8 cm2 RA A4 area: 17.8 cm2 TAPSE: 2.2 cm Time Measurements MV dec time: 0.13 sec Doppler Measurements & Calculations MV E max alex: 94.7 cm/sec Lat Peak E' Alex: 10.3 cm/sec Med Peak E' Alex: 8.8 cm/sec MV A max alex: 83.1 cm/sec E/E' lat: 9.2 E/E' med: 10.8 MV E/A: 1.1 MV dec slope: 746.5 cm/sec2 Ao V2 max: 141.1 cm/sec LV V1 max: 116.1 cm/sec Ao max P.0 mmHg LV V1 max P.4 mmHg Ao V2 mean: 109.1 cm/sec Ao mean P.1 mmHg Ao V2 VTI: 22.4 cm DASH(V,D): 3.0 cm2 PA V2 max: 93.5 cm/sec TR max alex: 315.9 cm/sec PA max PG (full): 0.62 mmHg TR max P.9 mmHg ECHO/Echo Complete W/ Contrast Interpretation Summary Severe generalized LV hypokinesis. Estimated LVEF 30 to 35%. Diastolic function indeterminate. Mild to moderate global right ventricular systolic dysfunction. The left atrium is mildly enlarged. Right ventricular systolic pressure estimated to be 45 mmHg. Technically difficult study with suboptimal apical images. Ordering Physician: Will Enrique Performed By: Sandra Singleton RVT, RDCS and Student
[2024-03-26] MEDS: Acetaminophen 325 MG Tablet 650 MG PO ×2 (13:17→21:35)
[2024-03-26 13:29] LABS: Ferritin 774 ng/mL (26-388); Iron 51 ug/dL (65-175); Iron Binding Capacity,Total 247 ug/dL (250-450); PERCENT IRON SATURATION 20.6 % (15.0-55.0)
[2024-03-26] MEDS: Nicardipine HCl-0.9% Sod Chlor 20 MG/200 ML IV.SOLN 50 MG CONT INF (13:49)
[2024-03-26] MEDS: Lidocaine Jelly 2% 20 ML Syringe (URO-JET) 1 APPLIC TOPICAL (14:30)
[2024-03-26] MEDS: Gabapentin 100 MG Capsule PO (16:04)
[2024-03-26] MEDS: Furosemide 40 MG/4 ML Vial IV ×2 (16:04→20:40)
[2024-03-26] MEDS: Nicardipine HCl-0.9% Sod Chlor 20 MG/200 ML IV.SOLN 100 MG CONT INF ×2 (16:38→19:00)
[2024-03-26] MEDS: 0.9% Saline Lock 10 ML Syringe IV (20:40)
[2024-03-26] MEDS: NORMAL SALINE 0.9% CONT INF (21:00)
[2024-03-26] MEDS: NICARDIPINE CONT INF (21:00)
--- NOTE | 2024-03-26 21:27 | PCM.HOSP.N ---
Hospitalist Note Patient with complaint of 10/10 back pain. Added kpad as needed, lidocaine patch and low dose oxycodone x 1.
[2024-03-26] MEDS: oxyCODONE 5 MG Tablet PO (21:34)
[2024-03-26] MEDS: Lidocaine 5% Patch 2 PATCH TOPICAL (23:35)
[2024-03-27] VITALS (28 sets, daily range): BP systolic 111–136; BP diastolic 73–91; PULSE 83–104; RESP 16–24; TEMP 36.4–37.7; O2SAT 94–99; BMI 22.4
[2024-03-27] MEDS: fentaNYL 25 MCG Patch TD (04:46)
[2024-03-27] MEDS: Furosemide 40 MG/4 ML Vial IV ×3 (04:55→22:07)
[2024-03-27 05:01] LABS: Hematocrit 21.8 % (40-54); Mean Corp Hgb Conc 32.1 g/dL (32-36); Mean Corpuscular Hgb 30.2 pg (27.0-32.0); Mean Platelet Vol. 9.5 fl (6.2-12.0); Platelet Count 420 K/mm3 (150-450); RBC Distribution Width CV 17.8 % (11.6-14.6); Red Blood Count 2.32 M/mm3 (4.6-6.2); White Blood Count 7.3 K/mm3 (4.4-11.0)
[2024-03-27 05:16] LABS: Anion Gap 2 (5-15); BUN 27 mg/dL (7-18); BUN/Creat Ratio 22.9 RATIO (10-20); Calcium,Total 7.6 mg/dL (8.5-10.1); Chloride 104 mmol/L (98-107); Creatinine, Serum 1.18 mg/dL (0.70-1.30); EST Glomerular Filtration Rate 70 mL/min (>60); Est Glom Filt Rate - Afr Amer 84 mL/min (>60); Glucose 97 mg/dL (74-106); Potassium 3.4 mmol/L (3.5-5.1); Sodium Level 132 mmol/L (136-145)
[2024-03-27 05:22] LABS: Vitamin B12 1001 pg/mL (211-911)
[2024-03-27] MEDS: Gabapentin 100 MG Capsule PO ×3 (07:51→16:40)
[2024-03-27] MEDS: Metoprolol Tartrate 25 MG Tablet PO ×2 (07:51→22:08)
[2024-03-27] MEDS: Allopurinol 100 MG Tablet PO (07:51)
[2024-03-27] MEDS: Lisinopril 5 MG Tablet PO (07:51)
[2024-03-27] MEDS: amLODIPine 10 MG Tablet PO (07:51)
[2024-03-27] MEDS: Potassium Chloride Oral Tablet 20 MEQ 40 MEQ PO (08:06)
[2024-03-27] MEDS: Pantoprazole Sodium 40 MG Tablet PO (08:08)
[2024-03-27] MEDS: Sertraline 100 MG Tablet PO (08:09)
[2024-03-27 08:13] LABS: Magnesium 1.3 mg/dL (1.6-2.6); Phosphorus 4.3 mg/dL (2.5-4.9)
[2024-03-27] MEDS: Magnesium Sulfate 4gm/100mL 4 GM/100 ML IV.SOLN. IV (09:14)
[2024-03-27] MEDS: Ensure Plus High Protein 120 ML LIQUID PO ×2 (09:14→14:00)
[2024-03-27] MEDS: Enoxaparin 40 MG/0.4 ML Syringe SC (09:15)
[2024-03-27] MEDS: Levothyroxine 50 MCG Tablet PO (09:23)
[2024-03-27] MEDS: 0.9% Saline Lock 10 ML Syringe IV ×2 (09:24→14:00)
--- NOTE | 2024-03-27 10:38 | CASEMGMT ---
ROSI SALEH Assessment Face to Face with patient for initial transition planning/care coordination assessment. ROSI SALEH introduced self and role at [facility], pt voices understanding. Pt is A&Ox4 and is resting comfortably in bed and is calm. Care providers, pharmacy, and demographics verified. Admitting dx: CHF Exacerbation with Anemia LACE Strata: 1 PCP: No PCP. Pt recently moved to [place] from [place]. Pt was given the provider directory at this time Specialists: Pt states that he was seeing an oncologist and sports manager in [place]. Pt has the list of local providers and states that he will call and set up appts Preferred Pharmacy: [facility] Insurance: Negar, Pt Vocational Technical Education Teacher, has seen the pt and the pt applied for TORIN. Prescription Benefit: None at this time. Pt is aware that TORIN with retro 3 months back after the application is processed LNOK: Susan Barbra (M), Jennifer Hidalgo (Aunt) Living Arrangements: Pt lives with his mother and brother in a 2 story home with a FFSU and 1 small step to enter ADLs/IADLs: Pt reports that he recently had a complicated hospitalization and new Dx's and that he is currently learning to walk again. Pt states that his brother supports him well at home Transportation: Pt brother. Denies current concerns DME: [employer] (Pt mothers), walk in shower with grab bars and seat. Pt states that he would like a FWW and has not had DME such as this set up for him in the last 5 years. Pt is aware that once TORIN goes through that they will pay for the DME. A verbal list of local DME companies provided to the pt at this time. Pt prefers to utilize [employer]. Will follow. HHC/SNF: Denies History Plan: TBD. Pt denies HHC (pt does not have a PCP as well). Anticipate Rehab vs OP Tx. Pt states that he would be interested in attending a rehab facility to gain more strength prior to returning home. SW made aware. PT and OT evaluations are pending. If the pt does DC home, the pt states that he would like OP Tx set up as well as a FWW. See above. CM and SW to follow therapy recommendations and to follow up with the pt to decipher the best DC plan moving forward. Darrin Goddard RN, CM
--- NOTE | 2024-03-27 11:01 | PCM.PN.HOSP ---
Reason for Visit Reason for Visit: Diagnoses Multiple myeloma not having achieved remission (03/26/24) Anemia, unspecified (03/26/24) Other disorders of plasma-protein metabolism, not elsewhere classified (03/26/24) Essential (primary) hypertension (03/26/24) Heart failure, unspecified (03/26/24) Acute respiratory failure with hypoxia (03/26/24) Subjective Subjective Saw patient at bedside this morning. Patient was sitting up comfortably in bed on 2 L nasal cannula in had no increased work of breathing noted. Appears significantly improved from yesterday. States that he feels much better today. Tolerated his breakfast without issue. No other new concerns today. Objective Data Objective Data Vital Signs: Vital Signs Temp Pulse Resp BP Pulse Ox O2 Del Method O2 Flow Rate 97.6 F L 92 20 H 120/76 96 Room Air 2 03/27/24 08:03 03/27/24 10:00 03/27/24 10:00 03/27/24 10:00 03/27/24 10:00 03/27/24 10:00 03/27/24 09:00 FiO2 30 03/26/24 15:45 Oxygen Flow Rate (L/min) 2 Oxygen Delivery Method Room Air Weight: 81.6 kg Body Mass Index (BMI) 22.4 Intake & Output: Intake and Output for Last 24 Hours 03/25/24 03/26/24 03/27/24 23:59 23:59 23:59 Intake Total 693.77 / 700.02 706.23 / 706.23 Output Total 5050 / 5050 1500 / 1500 Balance -4356.23 / -4349.98 -793.77 / -793.77 Lab / Micro Data 03/27/24 04:45 03/27/24 04:45 Labs: Laboratory Results - last 24 hr 03/26/24 09:50: Sodium 132 L, Potassium 3.8, Chloride 107, Carbon Dioxide 21.0, Anion Gap 4 L, BUN 22 H, Creatinine 1.16, Estim Creat Clear Calc 92.07, Est GFR (MDRD) Af Amer 86, Est GFR (MDRD) Non-Af 71, BUN/Creatinine Ratio 19.0, Glucose 105, Calcium 8.3 L, Iron 51 L, TIBC 247 L, Iron Saturation 20.6, Ferritin 774 H, Total Bilirubin 0.40, AST 26, ALT 18, Alkaline Phosphatase 100, Total Protein 12.8 H, Albumin 2.0 L, Globulin 10.8 H, Albumin/Globulin Ratio 0.2 L, Folate 14.10, TSH 11.400 H 03/27/24 04:45: WBC 7.3, RBC 2.32 L, Hgb 7.0 L, Hct 21.8 L, MCV 94.0, MCH 30.2, MCHC 32.1, RDW Std Deviation 60.0 H, RDW Coeff of Michael 17.8 H, Plt Count 420, MPV 9.5, Sodium 132 L, Potassium 3.4 L, Chloride 104, Carbon Dioxide 26.0, Anion Gap 2 L, BUN 27 H, Creatinine 1.18, Estim Creat Clear Calc 87.40, Est GFR (MDRD) Af Amer 84, Est GFR (MDRD) Non-Af 70, BUN/Creatinine Ratio 22.9 H, Glucose 97, Calcium 7.6 L, Phosphorus 4.3, Magnesium 1.3 L, Vitamin B12 1001 H, Free T4 0.70 L 03/27/24 07:55: Blood Type B POSITIVE, Antibody Screen POSITIVE H, Antibody Identification Cancelled, Crossmatch See Detail Radiography Diagnostic Testing: Radiology Impression Chest X-Ray 03/26/24 10:40 IMPRESSION: Cardiomegaly, hyperinflation and increase in bilateral diffuse interstitial prominence with small effusions. Findings compatible with worsening interstitial edema/congestive failure. Follow-up chest imaging to resolution recommended. Electronically Signed: Tadeo Medrano MD at 11:00 EDT Reading Location ID and State: [address] [place] [address] , Service support , Rhythm Strip Rhythm Strip: Sinus Tach Rate: 120 Ectopy: None Physical Exam Const alert, oriented x3, no apparent distress and average body habitus Constitutional Narrative: Middle-age male, appears much improved from admission, breathing comfortably on 2 L nasal cannula and energy improved, sitting up comfortably in bed, in no acute distress. General Appearance: cooperative HEENT normocephalic, head/scalp atraumatic, hearing grossly normal bilaterally, nasal mucous membranes and turbinates normal and moist oral mucous membranes Eyes PERRL, EOMs intact bilaterally and conjunctivae normal Neck full ROM Chest inspection of chest normal Resp Resp Narrative: Much improved from admission. Breathing comfortably on 2 L nasal cannula at rest. Mild crackles noted bilaterally, improving. No wheezing noted. Cardio regular rate, regular rhythm, no murmurs and peripheral pulses 2+ throughout GI normal to inspection, nondistended, normoactive bowel sounds, soft to palpation, non-tender and non-distended Back/Spine normal ROM Extremity Extremity Narrative: +1-2 lower extremity pitting edema, improving. Skin no rashes or lesions noted Neuro moves all extremities and no focal motor deficits Speech: speech normal Psych mental status grossly normal Assessment & Plan Assessment/Plan (1) Acute CHF: (2) Edema due to hypoalbuminemia: (3) Acute hypoxic respiratory failure: (4) Anemia: (5) HTN (hypertension): (6) Multiple myeloma: PLAN: Plan Patient is a 48-year-old male who presented [facility] ED on 03/26/2024 with worsening shortness of breath. 1. CHF exacerbation with acute hypoxic respiratory failure, improving ? Presented with worsening shortness of breath. Chest x-ray with bilateral infiltrates and small pleural effusions. BNP 2300. Suspect new heart failure may be related to his multiple myeloma. Much improved on hospital day 2. Continue IV Lasix 40 mg every 8 hours for now, will likely be okay to de-escalate to p.o. Lasix tomorrow. Continue monitoring I's and O's and monitor daily BMP. Weaned to 2 L nasal cannula by hospital day 2, continue to wean as able. Stable for transfer to PCU on 03/27. Echo completed, read pending. 2. Hypertensive urgency, improved ? Hypertensive to 170s over 120s in the ED. Has history of hypertension, on home amlodipine and Lopressor but patient reports only intermittent compliance. Had oncern for hypertensive urgency with some degree of flash pulmonary edema in the ED. Cardizem drip started on admission with good improvement. Discontinued Cardizem drip and restarted home amlodipine and Lopressor on 03/27. Started low-dose lisinopril on 03/27 as well. 3. Normocytic anemia ? Hemoglobin 7.6 on admit. Notably was 6.8 at recent ED visit on 03/22. Notably had prolonged hospitalization complicated by retroperitoneal hematoma recently and patient appears to be close to his new baseline hemoglobin. Low hemoglobin presumed in part due to multiple myeloma as well. Iron studies consistent with anemia of chronic disease. Repeat hemoglobin 7.0 on hospital day 2. Will transfuse 1 unit of blood today; notably we will give irradiated blood products given history of multiple myeloma. 4. Mild hyponatremia ? Sodium 132 on admit. Suspect due to hypervolemia. Treating CHF exacerbation as above. Monitor daily BMP. 5. Multiple myeloma with recent prolonged hospitalization ? Reportedly diagnosed in September 2023. Previously lived in [place] and had apparently began chemotherapy there prior to a prolonged hospitalization within the last month or so. That hospitalization was complicated by septic shock, NSTEMI, respiratory failure, hyponatremia, aspiration pneumonitis and nontraumatic retroperitoneal hematoma. Was intubated for about 2 weeks, able to be extubated without need for tracheostomy. Does have PEG tube in place, not currently in use. Mother lives in [place] and patient apparently moved up here last week and reports wanting to establish care here. Labs on admit with total protein 12.8, globulins 10.8, albumin 2.0. Treating acute CHF exacerbation as noted above. No inpatient needs for multiple myeloma but will need to determine outpatient treatment plan for him on discharge. 6. Hypothyroidism ? TSH 11.4, free T4 0.70 on admit. Unclear if patient has previous diagnosis of hypothyroidism but has no Synthroid noted on home med list. Continue p.o. Synthroid 50 mcg daily that was started on admission. 7. Acute debility, improving ? PT/OT/case management following. Planning for home either with home health care or outpatient therapy on discharge. Chronic medical conditions: ? GERD: Continue home PPI. ? Depression/insomnia: Continue home sertraline. Holding ramelteon, continue melatonin at night as needed. ? Chronic pain with neuropathy: Continue home gabapentin and fentanyl patch. ? History of gout: Continue home allopurinol. DVT prophylaxis: Lovenox CODE STATUS: Full code, verified Expected disposition: Home, 1 to 2 days Total clinical time spent by myself addressing the patient's medical issues, reviewing all the data, and collaborating with patient's care team: 35 minutes. Charges/Coding Visit Charges Inpatient E&M: 22477 Subs Hosp L2
--- NOTE | 2024-03-27 16:14 | CHAPLAIN ---
Type of Pastoral Visit _x__ Initial Visit ___ Follow-up Visit ___ On-call Visit ___ General Patient Visit ___ Spiritual Assessment ___ Family Conference ___ Bereavement ___ Rapid Response ___ Code Blue ___ Other (describe below) Pastoral Care Referral From _x__ Patient ___ Family ___ Nurse ___ Physician ___ Director Education ___ Mat Making Machine Tender ___ Other (describe below) Sacrament/Intervention _x__ Active listening ___ Anointing ___ Mormon ___ Bereavement ___ Communion _x__ Bhavna exploration ___ ___ Life review _x__ Prayer ___ Reconciliation ___ Sacrament of Sick ___ Supportive presence ___ Wedding ___ Other (describe below) Pastoral Comments patient is very welcoming; pt states that he is doing much better than yesterday and that it was a real scare that I couldn't breath; pt states that he is so thankful for being with family and that this has caused me to get close to Jam and get right; pt is affirmed and given opportunity to express his feelings and hopes for life; patient has family members in the room; pt welcomes prayer
[2024-03-27] MEDS: Lidocaine 5% Patch 2 PATCH TOPICAL (22:09)
[2024-03-28] VITALS (11 sets, daily range): BP systolic 126–138; BP diastolic 79–100; PULSE 82–102; RESP 16; TEMP 36.2–37.3; O2SAT 93–99; BMI 22.1
[2024-03-28 04:19] LABS: Hemoglobin 7.7 g/dL (13.0-16.5); Mean Corp Hgb Conc 32.1 g/dL (32-36); Mean Corpuscular Hgb 29.6 pg (27.0-32.0); Mean Corpuscular Volume 92.3 fL (80-94); Mean Platelet Vol. 9.5 fl (6.2-12.0); Platelet Count 441 K/mm3 (150-450); RBC Distribution Width CV 18.5 % (11.6-14.6); RBC Distribution Width SD 61.8 fl (35.1-43.9); White Blood Count 11.1 K/mm3 (4.4-11.0)
[2024-03-28 04:39] LABS: Anion Gap 3 (5-15); BUN 36 mg/dL (7-18); BUN/Creat Ratio 28.6 RATIO (10-20); Calcium,Total 7.8 mg/dL (8.5-10.1); Chloride 102 mmol/L (98-107); Creatinine, Serum 1.26 mg/dL (0.70-1.30); EST Glomerular Filtration Rate 65 mL/min (>60); Est Glom Filt Rate - Afr Amer 78 mL/min (>60); Estimated Creatinine Clearance 81.85 ml/min; Glucose 98 mg/dL (74-106); Potassium 3.4 mmol/L (3.5-5.1); Sodium Level 130 mmol/L (136-145)
[2024-03-28] MEDS: Furosemide 40 MG/4 ML Vial IV (06:04)
[2024-03-28] MEDS: Levothyroxine 50 MCG Tablet PO (06:04)
[2024-03-28] MEDS: Allopurinol 100 MG Tablet PO (09:09)
[2024-03-28] MEDS: Enoxaparin 40 MG/0.4 ML Syringe SC (09:10)
[2024-03-28] MEDS: Pantoprazole Sodium 40 MG Tablet PO (09:10)
[2024-03-28] MEDS: Lisinopril 5 MG Tablet PO (09:10)
[2024-03-28] MEDS: Sertraline 100 MG Tablet PO (09:11)
[2024-03-28] MEDS: Spironolactone 25 MG Tablet PO (09:21)
[2024-03-28] MEDS: Gabapentin 100 MG Capsule PO ×3 (09:21→18:23)
[2024-03-28] MEDS: Metoprolol(XL)Succ 25 MG Tablet PO ×2 (09:22→21:06)
[2024-03-28] MEDS: Empagliflozin 10 MG Tablet PO (09:22)
[2024-03-28] MEDS: Potassium Chloride Oral Tablet 20 MEQ 40 MEQ PO (09:23)
[2024-03-28] MEDS: Furosemide 40 MG Tablet PO (09:23)
[2024-03-28] MEDS: Ensure Plus High Protein 120 ML LIQUID PO ×4 (09:28→21:06)
--- NOTE | 2024-03-28 09:53 | CASEMGMT ---
Social Work VEL met with pt and introduced self and role of SW. Pt confirms that he has met with Negar from [facility] and is aware that he needs to cancel his [place] Medicaid and that once this has been done, Negar can assist pt in applying for [place] Medicaid. Pt is aware of what he needs to do to cancel ID TORIN. SW provided pt with written financial resources including [employer], prescription assistance information, [employer], [employer] and People [employer] People. Pt accepting of information. SW spoke with pt regarding dc plan and pt feels he did well with therapy and has no concerns with returning home to his mother's home at time of discharge. RNCM mahad. HU Andino
--- NOTE | 2024-03-28 10:33 | CASEMGMT ---
Addendum entered by Armen Swann 03/28/24 11:16: Script for OP PT obtained from Dr Enrique and given to pt at this time. Pt aware can take to any location of choice, when he is ready/has insurance. Verbally reviewed local OP facilities near pt's address. He voices appreciation. Addendum entered by Armen Swann 03/28/24 11:14: Per therapy, pt will not need matzo forming machine operator on FWW. Pt aware. Original Note: ROSI SALEH NOTE: ROSI SALEH to room to discuss discharge planning. Introduced self and role. Pt feels safe to discharge home and is interested in OP therapy. He states would like a script to take home w/him. He does not currently have insurance and states he will wait until insurance is activated before starting OP therapy. He is aware therapy can give him exercises to work on @ home and voices appreciation of same. Call placed to therapy who states they will give this to pt today. Pt also would like a walker. He is aware it would be self pay. Pt is 6'3 and may need matzo forming machine operator on walker. Therapy to measure pt to determine if matzo forming machine operator is needed. Per Beverly @ [employer], cost of standard walker is $77.13 and matzo forming machine operator is $36.16. Pt aware of silver and also that payment will be needed prior to delivery of walker. He states he will call his mom to inquire if she can help w/the payment. Pt denies having other discharge needs at this time. Mariela FRY RN, CM
--- NOTE | 2024-03-28 10:34 | PCM.CONS.C ---
Assessment & Plan Assessment/Plan (1) Acute systolic (congestive) heart failure: PLAN: Improved with diuresis. Switch to p.o. Continue beta-blockers, Aldactone, ACEI and SGLT2 inhibitors. Increase beta-blockers as tolerated. (2) Cardiomyopathy: PLAN: See #1 above. Hypothyroidism is noted. Treat as per internal medicine. Further workup as outpatient. (3) HTN (hypertension): PLAN: Increase beta-blockers and ACEI as tolerated. (4) Multiple myeloma: PLAN: Per patient, he has been told that it is terminal. Follow as per oncology. (5) Hypothyroidism: PLAN: Started on Synthroid. Follow as per internal medicine. HPI Consult Data Date of Consult: 03/28/24 HPI Narrative Reason for Consultation: Congestive heart failure HPI Narrative: 48-year-old gentleman with history of recently diagnosed multiple myeloma. Also history of hypertension. Earlier this year, he was in hospital at [facility] with septic shock, spontaneous retroperitoneal hematoma, aspiration pneumonitis and respiratory failure necessitating intubation. Patient presented to the emergency room this time with worsening shortness of breath. Also complained of ankle edema. He was admitted with a diagnosis of congestive heart failure. Echocardiogram was done. It shows LVEF estimated at 30 to 35%. RV systolic dysfunction is also noted. Patient presently feels better. His shortness of breath is improved. Denies any chest pains either at rest or with exertion. Per him, he was feeling short of breath with exertion at home. [facility] Medical History (Updated 03/28/24 @ 10:[address] Stella Egan MD) Substance abuse Anxiety Depression Former smoker Seizures Multiple myeloma Home Medications ?Medication ?Instructions ?Recorded ?Last Taken ?Type allopurinol 300 mg tablet 300 mg PO DAILY Gout 03/26/24 Unknown History amlodipine 5 mg tablet 10 mg PO DAILY BP 03/26/24 Unknown History fentanyl 25 mcg/hr transdermal 1 patch transdermal Q72H pain 03/26/24 Unknown History patch gabapentin 300 mg capsule 300 mg PO TID Neuropathy 03/26/24 Unknown History metoprolol tartrate 25 mg tablet 25 mg PO BID HTN 03/26/24 Unknown History pantoprazole 40 mg tablet,delayed 40 mg PO DAILY GERD 03/26/24 Unknown History release ramelteon 8 mg tablet 8 mg PO QHS sleep 03/26/24 Unknown History rivaroxaban 10 mg tablet 10 mg PO DAILY Blood thinner 03/26/24 Unknown History scopolamine base 1 mg over 3 days 1 patch transdermal Q72H pain 03/26/24 Unknown History transdermal patch sertraline 100 mg tablet (Zoloft) 100 mg PO DAILY Depression 03/26/24 Unknown History Allergy/AdvReac Type Severity Reaction Status Date / Time No Known Allergies Allergy Verified 03/26/24 09:27 Social History Smoking Status: Former smoker Physical Exam Narrative Comfortable. No apparent distress. Mild JVD. Heart sounds 1 and 2 are noted. Chest clear to auscultation bilaterally. Alert oriented x 3. No ankle edema noted. Risk Stratification Risk Stratification Applicable: No Objective Data Vital Signs: Vital Signs Temp Pulse Resp BP Pulse Ox O2 Del Method O2 Flow Rate 97.1 F L 102 H 16 133/79 H 95 Room Air 2 03/28/24 09:00 03/28/24 09:22 03/28/24 09:00 03/28/24 09:00 03/28/24 09:00 03/28/24 09:00 03/27/24 12:09 FiO2 30 03/26/24 15:45 Oxygen Flow Rate (L/min) 2 Oxygen Delivery Method Room Air Weight: 177 lb 7.554 oz Body Mass Index (BMI) 22.1 Intake & Output: Intake and Output for Last 24 Hours 03/26/24 03/27/24 03/28/24 23:59 23:59 23:59 Intake Total 693.77 / 700.02 1287.23 / 1287.23 Output Total 5050 / 5050 3900 / 3900 850 / 850 Balance -4356.23 / -4349.98 -2612.77 / -2612.77 -850 / -850 Lab / Micro Data 03/28/24 04:00 03/28/24 04:00 Labs: Laboratory Results - last 24 hr 03/27/24 07:55: Blood Type B POSITIVE, Antibody Screen NEGATIVE, Antibody Identification Cancelled, Crossmatch See Detail 03/28/24 04:00: WBC 11.1 H, RBC 2.60 L, Hgb 7.7 L, Hct 24.0 L, MCV 92.3, MCH 29.6, MCHC 32.1, RDW Std Deviation 61.8 H, RDW Coeff of Michael 18.5 H, Plt Count 441, MPV 9.5, Sodium 130 L, Potassium 3.4 L, Chloride 102, Carbon Dioxide 25.0, Anion Gap 3 L, BUN 36 H, Creatinine 1.26, Estim Creat Clear Calc 81.85, Est GFR (MDRD) Af Amer 78, Est GFR (MDRD) Non-Af 65, BUN/Creatinine Ratio 28.6 H, Glucose 98, Calcium 7.8 L Rhythm Strip Rhythm Strip: Sinus Tach Rate: 120 Ectopy: None Cardiology Labs/Tests 03/28/24 04:00: WBC 11.1 H, RBC 2.60 L, Hgb 7.7 L, Hct 24.0 L, MCV 92.3, MCH 29.6, MCHC 32.1, Plt Count 441, MPV 9.5, Sodium 130 L, Potassium 3.4 L, Chloride 102, Carbon Dioxide 25.0, Anion Gap 3 L, BUN 36 H, Creatinine 1.26, Est GFR (MDRD) Af Amer 78, Est GFR (MDRD) Non-Af 65, BUN/Creatinine Ratio 28.6 H, Glucose 98, Calcium 7.8 L Rhythm: EKG: Admission ECG showed sinus tachycardia. Nonspecific ST changes noted. ECHO: Stress Test: Cardiac Cath: PCI: CT Surgery: Holter monitor: EPS: PPM: CXR: Chest CT Scan: Radiography Diagnostic Testing: Radiology Impression Echocardiogram 03/26/24 12:53 Interpretation Summary Severe generalized LV hypokinesis. Estimated LVEF 30 to 35%. Diastolic function indeterminate. Mild to moderate global right ventricular systolic dysfunction. The left atrium is mildly enlarged. Right ventricular systolic pressure estimated to be 45 mmHg. Technically difficult study with suboptimal apical images. Ordering Physician: Will Enrique Performed By: Mani PETERSON RDCS, Sandra and Student
--- NOTE | 2024-03-28 12:39 | PCM.PN.HOSP ---
Reason for Visit Reason for Visit: Diagnoses Multiple myeloma not having achieved remission (03/26/24) Anemia, unspecified (03/26/24) Hypothyroidism, unspecified (03/26/24) Other disorders of plasma-protein metabolism, not elsewhere classified (03/26/24) Essential (primary) hypertension (03/26/24) Cardiomyopathy, unspecified (03/26/24) Acute systolic (congestive) heart failure (03/26/24) Heart failure, unspecified (03/26/24) Acute respiratory failure with hypoxia (03/26/24) Subjective Subjective Saw patient at bedside this morning. Patient continued to appear improved this morning, was sitting up comfortably in bed and in no acute distress. He was breathing comfortably on room air at rest and had walked around the floor for an O2 ambulatory test and did not require oxygen with ambulation. He has been tolerating meals without issue. No other new concerns today. Objective Data Objective Data Vital Signs: Vital Signs Temp Pulse Resp BP Pulse Ox O2 Del Method O2 Flow Rate 97.1 F L 102 H 16 133/79 H 95 Room Air 2 03/28/24 09:00 03/28/24 09:22 03/28/24 09:00 03/28/24 09:00 03/28/24 11:00 03/28/24 09:00 03/27/24 12:09 FiO2 30 03/26/24 15:45 Oxygen Flow Rate (L/min) 2 Oxygen Delivery Method Room Air Weight: 80.5 kg Body Mass Index (BMI) 22.1 Intake & Output: Intake and Output for Last 24 Hours 03/26/24 03/27/24 03/28/24 23:59 23:59 23:59 Intake Total 693.77 / 700.02 1287.23 / 1287.23 Output Total 5050 / 5050 3900 / 3900 850 / 850 Balance -4356.23 / -4349.98 -2612.77 / -2612.77 -850 / -850 Lab / Micro Data 03/28/24 04:00 03/28/24 04:00 Labs: Laboratory Results - last 24 hr 03/27/24 07:55: Antibody Screen NEGATIVE, Crossmatch See Detail 03/28/24 04:00: WBC 11.1 H, RBC 2.60 L, Hgb 7.7 L, Hct 24.0 L, MCV 92.3, MCH 29.6, MCHC 32.1, RDW Std Deviation 61.8 H, RDW Coeff of Michael 18.5 H, Plt Count 441, MPV 9.5, Sodium 130 L, Potassium 3.4 L, Chloride 102, Carbon Dioxide 25.0, Anion Gap 3 L, BUN 36 H, Creatinine 1.26, Estim Creat Clear Calc 81.85, Est GFR (MDRD) Af Amer 78, Est GFR (MDRD) Non-Af 65, BUN/Creatinine Ratio 28.6 H, Glucose 98, Calcium 7.8 L Radiography Diagnostic Testing: Radiology Impression Echocardiogram 03/26/24 12:53 Interpretation Summary Severe generalized LV hypokinesis. Estimated LVEF 30 to 35%. Diastolic function indeterminate. Mild to moderate global right ventricular systolic dysfunction. The left atrium is mildly enlarged. Right ventricular systolic pressure estimated to be 45 mmHg. Technically difficult study with suboptimal apical images. Ordering Physician: Will Enrique Performed By: Mani PETERSON RDCS, Sandra and Student Rhythm Strip Rhythm Strip: Sinus Tach Rate: 120 Ectopy: None Physical Exam Const alert, oriented x3, no apparent distress and average body habitus Constitutional Narrative: Middle-age male, appears much improved from admission, breathing comfortably on room air and energy improved, sitting up comfortably in bed, in no acute distress. General Appearance: cooperative HEENT normocephalic, head/scalp atraumatic, hearing grossly normal bilaterally, nasal mucous membranes and turbinates normal and moist oral mucous membranes Eyes PERRL, EOMs intact bilaterally and conjunctivae normal Neck full ROM Chest inspection of chest normal Resp Resp Narrative: Much improved from admission. Breathing comfortably on room air at rest. No wheezing or crackles noted. Cardio regular rate, regular rhythm, no murmurs and peripheral pulses 2+ throughout GI normal to inspection, nondistended, normoactive bowel sounds, soft to palpation, non-tender and non-distended Back/Spine normal ROM Extremity Extremity Narrative: Trace lower extremity edema noted. Skin no rashes or lesions noted Neuro moves all extremities and no focal motor deficits Speech: speech normal Psych mental status grossly normal Assessment & Plan Assessment/Plan (1) Acute CHF: (2) Edema due to hypoalbuminemia: (3) Acute hypoxic respiratory failure: (4) Anemia: (5) HTN (hypertension): (6) Multiple myeloma: PLAN: Plan Patient is a 48-year-old male who presented [facility] ED on 03/26/2024 with worsening shortness of breath. 1. CHF exacerbation with acute hypoxic respiratory failure, improving ? Cardiology following. Presented with worsening shortness of breath. Chest x-ray with bilateral infiltrates and small pleural effusions. BNP 2300. Suspect new heart failure may be related to his multiple myeloma. Echo 03/26 showed EF 30 to 35%, severe generalized LV hypokinesis, mild to moderate global RV systolic dysfunction. Much improved by hospital day 2 with IV diuresis. Stable for transfer to PCU on 03/27. Weaned off supplemental oxygen on 03/28. Treated with IV Lasix 40 mg every 8 hours through 03/27, transitioned to p.o. Lasix 40 mg daily on 03/28. Per cardiology, treating with empagliflozin, lisinopril, Toprol and spironolactone. If patient tolerating this regimen well tomorrow, will likely be stable for discharge. 2. Hypertensive urgency, improved ? Hypertensive to 170s over 120s in the ED. Has history of hypertension, on home amlodipine and Lopressor but patient reports only intermittent compliance. Had concern for hypertensive urgency with some degree of flash pulmonary edema in the ED. Cardizem drip started on admission with good improvement. Discontinue Cardizem drip on 03/26 and restarted home medications. Currently treating with new regimen as noted above. 3. Normocytic anemia ? Hemoglobin 7.6 on admit. Notably was 6.8 at recent ED visit on 03/22. Notably had prolonged hospitalization complicated by retroperitoneal hematoma recently and patient appears to be close to his new baseline hemoglobin. Low hemoglobin presumed in part due to multiple myeloma as well. Iron studies consistent with anemia of chronic disease. Repeat hemoglobin 7.0 on hospital day 2, given 1 unit of irradiated packed red blood cells. Repeat hemoglobin 7.7 on 03/28. Continue to monitor CBC daily. 4. Mild hyponatremia ? Sodium 132 on admit. Suspect due to hypervolemia. Treating CHF exacerbation as above. Monitor daily BMP. 5. Multiple myeloma with recent prolonged hospitalization ? Reportedly diagnosed in September 2023. Previously lived in [place] and had apparently began chemotherapy there prior to a prolonged hospitalization within the last month or so. That hospitalization was complicated by septic shock, NSTEMI, respiratory failure, hyponatremia, aspiration pneumonitis and nontraumatic retroperitoneal hematoma. Was intubated for about 2 weeks, able to be extubated without need for tracheostomy. Does have PEG tube in place, not currently in use. Mother lives in [place] and patient apparently moved up here last week and reports wanting to establish care here. Labs on admit with total protein 12.8, globulins 10.8, albumin 2.0. Treating acute CHF exacerbation as noted above. No inpatient needs for multiple myeloma but will need to determine outpatient treatment plan for him on discharge. 6. Hypothyroidism ? TSH 11.4, free T4 0.70 on admit. Unclear if patient has previous diagnosis of hypothyroidism but has no Synthroid noted on home med list. Continue p.o. Synthroid 50 mcg daily that was started on admission. 7. Acute debility, improving ? PT/OT/case management following. Planning for home with outpatient physical therapy on discharge. Chronic medical conditions: ? GERD: Continue home PPI. ? Depression/insomnia: Continue home sertraline. Holding ramelteon, continue melatonin at night as needed. ? Chronic pain with neuropathy: Continue home gabapentin and fentanyl patch. ? History of gout: Continue home allopurinol. DVT prophylaxis: Lovenox CODE STATUS: Full code, verified Expected disposition: Home, 1 to 2 days Total clinical time spent by myself addressing the patient's medical issues, reviewing all the data, and collaborating with patient's care team: 35 minutes. Charges/Coding Visit Charges Inpatient E&M: 36997 Subs Hosp L2
[2024-03-28] MEDS: Acetaminophen 325 MG Tablet 650 MG PO (14:22)
--- NOTE | 2024-03-28 20:48 | CPS ---
Patient refused PAP therapy for night time use
[2024-03-28] MEDS: Lisinopril 10 MG Tablet PO (21:07)
[2024-03-28] MEDS: Lidocaine 5% Patch 2 PATCH TOPICAL (21:07)
[2024-03-29 03:25] VITALS: BP 143/92; PULSE 86; RESP 18; TEMP 36.7; O2SAT 95
[2024-03-29 05:35] VITALS: BMI 22.0
[2024-03-29] MEDS: Levothyroxine 50 MCG Tablet PO (05:40)
[2024-03-29] MEDS: Acetaminophen 325 MG Tablet 650 MG PO (05:49)
[2024-03-29 07:45] LABS: Hematocrit 24.9 % (40-54); Hemoglobin 7.9 g/dL (13.0-16.5); Mean Corp Hgb Conc 31.7 g/dL (32-36); Mean Corpuscular Hgb 29.7 pg (27.0-32.0); Mean Corpuscular Volume 93.6 fL (80-94); Mean Platelet Vol. 9.7 fl (6.2-12.0); Platelet Count 458 K/mm3 (150-450); RBC Distribution Width CV 17.9 % (11.6-14.6); RBC Distribution Width SD 60.1 fl (35.1-43.9); Red Blood Count 2.66 M/mm3 (4.6-6.2); White Blood Count 10.8 K/mm3 (4.4-11.0)
[2024-03-29 08:23] LABS: Anion Gap 4 (5-15); BUN 40 mg/dL (7-18); BUN/Creat Ratio 29.6 RATIO (10-20); Calcium,Total 8.2 mg/dL (8.5-10.1); Chloride 104 mmol/L (98-107); Creatinine, Serum 1.35 mg/dL (0.70-1.30); EST Glomerular Filtration Rate 60 mL/min (>60); Est Glom Filt Rate - Afr Amer 72 mL/min (>60); Glucose 99 mg/dL (74-106); Potassium 3.8 mmol/L (3.5-5.1); Sodium Level 129 mmol/L (136-145)
[2024-03-29 08:52] VITALS: BP 143/94; PULSE 96; RESP 18; TEMP 36.4; O2SAT 98
[2024-03-29] MEDS: Empagliflozin 10 MG Tablet PO (08:54)
[2024-03-29] MEDS: Sertraline 100 MG Tablet PO (08:55)
[2024-03-29] MEDS: Spironolactone 25 MG Tablet PO (08:55)
[2024-03-29] MEDS: Pantoprazole Sodium 40 MG Tablet PO (08:55)
[2024-03-29] MEDS: Lisinopril 10 MG Tablet PO (08:55)
[2024-03-29] MEDS: Furosemide 40 MG Tablet PO (08:55)
[2024-03-29] MEDS: Ensure Plus High Protein 120 ML LIQUID PO (08:55)
[2024-03-29] MEDS: Allopurinol 100 MG Tablet PO (08:55)
[2024-03-29 08:56] VITALS: PULSE 96
[2024-03-29] MEDS: Metoprolol(XL)Succ 25 MG Tablet PO (08:56)
[2024-03-29] MEDS: Gabapentin 100 MG Capsule PO ×2 (08:59→12:22)
--- NOTE | 2024-03-29 09:33 | PCM.DC ---
Discharge Instructions Diet Discharge Diet: No restrictions Activity Discharge Activity: No Restrictions Follow Up Care Test Results: Test results from this visit will be discussed in further detail at your follow-up appointment, if applicable. Discharge Plan Admission Admit Date/Time: 03/26/24 12:48 Primary Reason for Your Visit: shortness of breath Attending Provider: Will Enrique Primary Care Provider: Florinda Hawley Consulting Providers: Stella Egan Instructions Additional Instructions / Restrictions: Please start taking all new medications as prescribed below. Discharge Orders/Prescriptions Prescriptions: New furosemide 40 mg Tablet 40 mg PO DAILY 30 Days Qty: 30 2RF allopurinol 100 mg Tablet 100 mg PO BREAKFAST 90 Days Qty: 90 1RF spironolactone 25 mg Tablet 25 mg PO DAILY 30 Days Qty: 30 2RF levothyroxine 50 mcg Tablet 50 mcg PO DAILY@0600 90 Days Qty: 90 1RF lisinopril 10 mg Tablet 10 mg PO BID 30 Days Qty: 60 2RF gabapentin 100 mg Capsule 100 mg PO TIDCM 30 Days Qty: 90 2RF metoprolol succinate 25 mg Tablet Extended Release 24 Hr 25 mg PO BID 30 Days Qty: 60 2RF Jardiance 10 mg Tablet 10 mg PO DAILY 90 Days Qty: 90 1RF Continued fentanyl 25 mcg/hr patch 72 hour 1 patch transdermal Q72H ramelteon 8 mg tablet 8 mg PO QHS pantoprazole 40 mg tablet,delayed release (DR/EC) 40 mg PO DAILY sertraline [Zoloft] 100 mg tablet 100 mg PO DAILY Discontinued allopurinol 300 mg tablet 300 mg PO DAILY metoprolol tartrate 25 mg tablet 25 mg PO BID scopolamine base 1 mg over 3 days patch 3 day 1 patch transdermal Q72H gabapentin 300 mg capsule 300 mg PO TID rivaroxaban 10 mg tablet 10 mg PO DAILY No Action amlodipine 5 mg tablet 10 mg PO DAILY Referrals / Follow Up: Florinda Hawley [Primary Care Provider] - 04/03/24 9:00 am (Appt will be with Jeri NOVA ) Disposition Disposition (needs filled in before D/C Order can be placed): Home, Self Care
--- NOTE | 2024-03-29 09:38 | PCM.DC.SUM ---
Providers Date of Admission: 03/26/24 Date of Discharge: 03/29/24 Primary Care Physician: Melani Primary Care Phys Consultations 03/27/24 16:24 Consult: Cardiology Routine Consulting Provider: Stella Egan Reason for Consult: CHF exacerbation w/ new HFrEF diagnosis EMERGENT Consult: No MD Notified: Yes Date Notified: 03/27/24 Time Notified: 17:12 Method of Notification: Verbal Reason For Visit: CHF EXACERBATION WITH ANEMIA Diagnosis Discharge Diagnosis (1) Acute CHF: Status: Acute Code(s): I50.9 - Heart failure, unspecified (2) Edema due to hypoalbuminemia: Status: Acute Code(s): E88.09 - Other disorders of plasma-protein metabolism, not elsewhere classified (3) Acute hypoxic respiratory failure: Status: Acute Code(s): J96.01 - Acute respiratory failure with hypoxia (4) Anemia: Status: Acute Code(s): D64.9 - Anemia, unspecified (5) HTN (hypertension): Status: Chronic Code(s): I10 - Essential (primary) hypertension (6) Multiple myeloma: Status: Acute Code(s): C90.00 - Multiple myeloma not having achieved remission Medications at Discharge Home Medications amlodipine 5 mg tablet 10 mg PO DAILY BP 03/26/24 fentanyl 25 mcg/hr transdermal patch 1 patch transdermal Q72H pain 03/26/24 pantoprazole 40 mg tablet,delayed release 40 mg PO DAILY GERD 03/26/24 ramelteon 8 mg tablet 8 mg PO QHS sleep 03/26/24 sertraline 100 mg tablet (Zoloft) 100 mg PO DAILY Depression 03/26/24 allopurinol 100 mg tablet 100 mg PO BREAKFAST 90 days #90 tabs 03/29/24 empagliflozin 10 mg tablet (Jardiance) 10 mg PO DAILY 90 days #90 tabs 03/29/24 furosemide 40 mg tablet 40 mg PO DAILY 30 days #30 tabs 03/29/24 gabapentin 100 mg capsule 100 mg PO TIDCM 30 days #90 caps 03/29/24 levothyroxine 50 mcg tablet 50 mcg PO DAILY@0600 90 days #90 tabs 03/29/24 lisinopril 10 mg tablet 10 mg PO BID 30 days #60 tabs 03/29/24 metoprolol succinate 25 mg tablet,extended release 24 hr 25 mg PO BID 30 days #60 tabs 03/29/24 spironolactone 25 mg tablet 25 mg PO DAILY 30 days #30 tabs 03/29/24 Hospital Course Operations None Procedures EKG, Transthoracic echo and - (Chest x-ray) Summary of Care Provided Minutes Spent on Discharge: 35 Hospital Course: Patient is a 48-year-old male who presented [facility] ED on 03/26/2024 with worsening shortness of breath. Hospital course as noted below. Patient discharged home with home health care in stable condition on 03/29. 1. CHF exacerbation with acute hypoxic respiratory failure, improved ? Cardiology followed. Presented with worsening shortness of breath. Chest x-ray with bilateral infiltrates and small pleural effusions. BNP 2300. Suspect new heart failure may be related to his multiple myeloma. Echo 03/26 showed EF 30 to 35%, severe generalized LV hypokinesis, mild to moderate global RV systolic dysfunction. Much improved by hospital day 2 with IV diuresis. Stable for transfer to PCU on 03/27. Weaned off supplemental oxygen on 03/28. Treated with IV Lasix 40 mg every 8 hours through 03/27, transitioned to p.o. Lasix 40 mg daily on 03/28. Discharged on Lasix, Toprol, lisinopril and spironolactone. Patient unfortunately could not afford empagliflozin. Close outpatient follow-up with cardiology after discharge. 2. Hypertensive urgency, improved ? Hypertensive to 170s over 120s in the ED. Has history of hypertension, on home amlodipine and Lopressor but patient reports only intermittent compliance. Had concern for hypertensive urgency with some degree of flash pulmonary edema in the ED. Cardizem drip started on admission with good improvement. Discontinue Cardizem drip on 03/26 and restarted home medications. Medication regimen on discharge as noted above. 3. Normocytic anemia ? Hemoglobin 7.6 on admit. Notably was 6.8 at recent ED visit on 03/22. Notably had prolonged hospitalization complicated by retroperitoneal hematoma recently and patient appears to be close to his new baseline hemoglobin. Low hemoglobin presumed in part due to multiple myeloma as well. Iron studies consistent with anemia of chronic disease. Repeat hemoglobin 7.0 on hospital day 2, given 1 unit of irradiated packed red blood cells. Repeat hemoglobin 7.7 on 03/28. Recommend repeat CBC in about 1 week to ensure hemoglobin remained stable. 4. Mild hyponatremia ? Sodium 132 on admit. Suspect due to hypervolemia. Remained stable around 130 during hospitalization. Repeat BMP in about 1 week to ensure it remains stable post discharge. 5. Multiple myeloma with recent prolonged hospitalization ? Reportedly diagnosed in September 2023. Previously lived in [place] and had apparently began chemotherapy there prior to a prolonged hospitalization within the last month or so. That hospitalization was complicated by septic shock, NSTEMI, respiratory failure, hyponatremia, aspiration pneumonitis and nontraumatic retroperitoneal hematoma. Was intubated for about 2 weeks, able to be extubated without need for tracheostomy. Does have PEG tube in place, not currently in use. Mother lives in [place] and patient apparently moved up here last week and reports wanting to establish care here. Labs on admit with total protein 12.8, globulins 10.8, albumin 2.0. Treated acute CHF exacerbation as noted above. No inpatient needs for multiple myeloma; has PCP appointment set up at [facility] next week and they can assist with referral to oncology going forward. 6. Hypothyroidism ? TSH 11.4, free T4 0.70 on admit. Unclear if patient has previous diagnosis of hypothyroidism but has no Synthroid noted on home med list. Continue p.o. Synthroid 50 mcg daily on discharge. 7. Acute debility, improving ? PT/OT/case management followed. Discharged home with home health care in stable condition. Chronic medical conditions: ? GERD: Continue home PPI. ? Depression/insomnia: Continue home sertraline and ramelteon. ? Chronic pain with neuropathy: Continue home gabapentin and fentanyl patch. ? History of gout: Continue home allopurinol. Total clinical time spent by myself addressing the patient's medical issues, reviewing all the data, and collaborating with patient's care team: 35 minutes. Physical Exam Const alert, oriented x3, no apparent distress and average body habitus Constitutional Narrative: Middle-age male, appears much improved from admission, breathing comfortably on room air and energy improved, sitting up comfortably in bed, in no acute distress. Stable. General Appearance: cooperative HEENT normocephalic, head/scalp atraumatic, hearing grossly normal bilaterally, nasal mucous membranes and turbinates normal and moist oral mucous membranes Eyes PERRL, EOMs intact bilaterally and conjunctivae normal Neck full ROM Chest inspection of chest normal Resp Resp Narrative: Much improved from admission. Breathing comfortably on room air at rest. No wheezing or crackles noted. Cardio regular rate, regular rhythm, no murmurs and peripheral pulses 2+ throughout GI normal to inspection, nondistended, normoactive bowel sounds, soft to palpation, non-tender and non-distended Back/Spine normal ROM Extremity Extremity Narrative: Trace lower extremity edema noted. Skin no rashes or lesions noted Neuro moves all extremities and no focal motor deficits Speech: speech normal Psych mental status grossly normal Weight / BMI Weight Weight: 80 kg Body Mass Index (BMI) 22.0 ABG / Lab / Microbiology Data 03/29/24 07:29 03/29/24 07:29 Laboratory: Laboratory Results - last 24 hr 03/29/24 07:29: WBC 10.8, RBC 2.66 L, Hgb 7.9 L, Hct 24.9 L, MCV 93.6, MCH 29.7, MCHC 31.7 L, RDW Std Deviation 60.1 H, RDW Coeff of Michael 17.9 H, Plt Count 458 H, MPV 9.7, Sodium 129 L, Potassium 3.8, Chloride 104, Carbon Dioxide 21.0, Anion Gap 4 L, BUN 40 H, Creatinine 1.35 H, Estim Creat Clear Calc 74.90, Est GFR (MDRD) Af Amer 72, Est GFR (MDRD) Non-Af 60, BUN/Creatinine Ratio 29.6 H, Glucose 99, Calcium 8.2 L D/C Instructions Discharge Diet: No restrictions Meaningful Use Info Meaningful Use Meaningful Use Diagnoses (Choose all that apply): CHF CHF BEATRIS/ARB ordered at discharge?: Yes Documented LVEF (%): 35 Ischemic Stroke Statin Dosing Therapy Reference: STATIN DOSE THERAPY REFERENCE: * Patients > 75 years receive moderate or high dose statin therapy. * Patients 75 years or YOUNGER should receive HIGH intensity statin dose unless contraindicated. You will be required to document reason for non-treatment if statin daily dose does not meet guidelines. HIGH DOSE STATIN THERAPY DAILY Atorvastatin > than or = to 40 mg Rosuvastatin > than or = to 20 mg Amlodipine + Atorvastatin > than or = to 2.5/40 mg Ezetimibe + Simvastatin 10/80 mg Simvastatin 80mg Discharge Plan Admission Admit Date/Time: 03/26/24 12:48 Primary Reason for Your Visit: shortness of breath Attending Provider: Will Enrique Primary Care Provider: Florinda Hawley Consulting Providers: Stella Egan Instructions Additional Instructions / Restrictions: Please start taking all new medications as prescribed below. Discharge Orders/Prescriptions Prescriptions: New furosemide 40 mg Tablet 40 mg PO DAILY 30 Days Qty: 30 2RF allopurinol 100 mg Tablet 100 mg PO BREAKFAST 90 Days Qty: 90 1RF spironolactone 25 mg Tablet 25 mg PO DAILY 30 Days Qty: 30 2RF levothyroxine 50 mcg Tablet 50 mcg PO DAILY@0600 90 Days Qty: 90 1RF lisinopril 10 mg Tablet 10 mg PO BID 30 Days Qty: 60 2RF gabapentin 100 mg Capsule 100 mg PO TIDCM 30 Days Qty: 90 2RF metoprolol succinate 25 mg Tablet Extended Release 24 Hr 25 mg PO BID 30 Days Qty: 60 2RF Jardiance 10 mg Tablet 10 mg PO DAILY 90 Days Qty: 90 1RF Continued fentanyl 25 mcg/hr patch 72 hour 1 patch transdermal Q72H ramelteon 8 mg tablet 8 mg PO QHS pantoprazole 40 mg tablet,delayed release (DR/EC) 40 mg PO DAILY sertraline [Zoloft] 100 mg tablet 100 mg PO DAILY Discontinued allopurinol 300 mg tablet 300 mg PO DAILY metoprolol tartrate 25 mg tablet 25 mg PO BID scopolamine base 1 mg over 3 days patch 3 day 1 patch transdermal Q72H gabapentin 300 mg capsule 300 mg PO TID rivaroxaban 10 mg tablet 10 mg PO DAILY No Action amlodipine 5 mg tablet 10 mg PO DAILY Referrals / Follow Up: Florinda Hawley [Primary Care Provider] - 04/03/24 9:00 am (Appt will be with Jeri NOVA ) Disposition Disposition (needs filled in before D/C Order can be placed): Home, Self Care Charges/Coding Visit Charges Inpatient E&M: 78012 Disch Hosp >30min
--- NOTE | 2024-03-29 10:20 | CASEMGMT ---
Addendum entered by Armen Swann 03/29/24 14:42: Meds have been e-scribed to [facility] retail pharmacy. Pt states his mom has already paid for all of them, except for the Jardiance, d/t cost is $2,075. Dr Enrique made aware. Pt plans to rock picker the Rx's from pharmacy drive-thru @ discharge. Pt denies having other discharge needs/concerns. Addendum entered by Armen Swann 03/29/24 14:36: Per Fuentes @ [employer], pt's mother has paid for the FWW and walker to be given from [facility]/[employer] stock. FWW taken to room and given to pt. Consignment form signed and sent to [employer] via [employer]. Pt given copy. Original Note: ROSI SALEH NOTE: Per Dr Enrique, pt will discharge home today, as long as pt is cleared by cardiology. Pt does not have a PCP or insurance through [place] at this time and Dr Enrique states pt will need close f/u after discharge. ROSI SALEH to room. He was provided w/[facility] info yesterday and states is agreeable to going there and agreeable with this ROSI SALEH scheduling an appt with them. Call placed to [facility]. Appt scheduled for 04/03 @ 9 AM w/[facility]. This was added to pt's discharge plan and pt made aware. He states this time will work well for him. Pt states he spoke w/his mom re: cost of walker and she is agreeable to paying for it. Mom states she can pay for it over the phone using Debit card. Referral sent to [facility] for walker and made aware to call pt's mom for payment. Pt denies having other discharge needs. Mariela ARANDA CM
[2024-03-29 11:10] VITALS: O2SAT 95; O2SAT 98
== END 2024-03-29 16:09 | disposition home or self-care (01) | DRG 291 ==
LOC: ED 12:38 → ICU 13:44
PROVIDERS: Admitting Provider Hospitalist; Emergency Provider Emergency Medicine; Visit Provider Hospitalist
DX: I11.0 Hypertensive heart disease with heart failure (principal); J96.01 Acute respiratory failure with hypoxia; I50.21 Acute systolic (congestive) heart failure; E87.1 Hypo-osmolality and hyponatremia; C90.00 Multiple myeloma not having achieved remission; E88.09 Other disorders of plasma-protein metabolism, not elsewhere classified; K21.9 Gastro-esophageal reflux disease without esophagitis; I42.9 Cardiomyopathy, unspecified; E03.9 Hypothyroidism, unspecified; F32.A Depression, unspecified; I16.0 Hypertensive urgency; D63.0 Anemia in neoplastic disease; Z93.1 Gastrostomy status; G62.9 Polyneuropathy, unspecified; I25.2 Old myocardial infarction; G89.29 Other chronic pain; G47.00 Insomnia, unspecified; R53.81 Other malaise; Z79.01 Long term (current) use of anticoagulants; Z79.890 Hormone replacement therapy; Z79.899 Other long term (current) drug therapy; Z87.891 Personal history of nicotine dependence
CPT/HCPCS: 71046; 80048; 80053; 82607; 82728; 82746; 83540; 83550; 83735; 83880; 84100; 84439; 84443; 84484; 85025; 85027; 86644; 86850; 86900; 86901; 86920; 86921; 86922; 92610; 93005; 93306; 94002; 94640; 94668; 94762; 97116; 97162; 97166; 97535; 97802; 99285; 99406; J7050; P9040; Q9957; A4216; C8929; J1940

== ENCOUNTER → 2024-04-05 | Outpatient (CLI) | payer SELFPAY ==
[2024-04-05 10:39] LABS: Absolute Lymphocyte Count 1.97 X10^3/uL (0.83-4.51); Absolute Neutrophil Count 6.3 X10^3/uL (2.0-7.7); Basophil# 0.05 X10^3/uL; Basophil% 0.5 % (0-1); Eosinophil# 0.18 X10^3/uL; Hematocrit 28.3 % (40-54); Hemoglobin 8.6 g/dL (13.0-16.5); Lymphocyte # 1.97 X10^3/ul (0.83-4.51); Lymphocyte % 21.6 % (19-41); Mean Corp Hgb Conc 30.4 g/dL (32-36); Mean Corpuscular Hgb 30.2 pg (27.0-32.0); Mean Corpuscular Volume 99.3 fL (80-94); Mean Platelet Vol. 9.5 fl (6.2-12.0); Monocyte# 0.54 X10^3/uL; Monocyte% 5.9 % (0-10); NRBC Flagged by Analyzer 0 % (0-5); Neutrophil # 6.31 X10^3/uL (2.7-7.7); Neutrophil % 69.2 % (47-70); POSITIVE MORPHOLOGY YES; Platelet Count 607 K/mm3 (150-450); RBC Distribution Width CV 18.2 % (11.6-14.6); RBC Distribution Width SD 65.8 fl (35.1-43.9); Red Blood Count 2.85 M/mm3 (4.6-6.2); White Blood Count 9.1 K/mm3 (4.4-11.0)
[2024-04-05 10:45] LABS: Differential Indicated SCAN CRITERIA MET
[2024-04-05 11:16] LABS: Anisocytosis 2+
[2024-04-05 11:33] LABS: ALB/GLOB Ratio 0.2 RATIO (0.9-2.4); AST(SGOT) 24 U/L (15-37); Alanine Aminotransfer ALT/SGPT 25 U/L (16-61); Albumin, Serum 2.3 g/dL (3.2-5.0); Alkaline Phosphatase 103 U/L (45-117); Anion Gap 1 (5-15); BUN 44 mg/dL (7-18); BUN/Creat Ratio 35.5 RATIO (10-20); Calcium,Total 8.5 mg/dL (8.5-10.1); Chloride 108 mmol/L (98-107); Creatinine, Serum 1.24 mg/dL (0.70-1.30); EST Glomerular Filtration Rate 66 mL/min (>60); Est Glom Filt Rate - Afr Amer 79 mL/min (>60); Globulin 11.8 g/dL (2.2-4.2); Glucose 95 mg/dL (74-106); Potassium 4.5 mmol/L (3.5-5.1); Protein, Total 14.1 g/dL (6.4-8.2); Sodium Level 134 mmol/L (136-145)
== END | disposition home or self-care (01) ==
LOC: MTLAB 08:40
PROVIDERS: Referring Provider Nurse Practitioner Family; Visit Provider Nurse Practitioner Family
DX: I50.9 Heart failure, unspecified (principal); D64.9 Anemia, unspecified
CPT/HCPCS: 36415; 80053; 85025